=== PATIENT | female | born 1970 | race Caucasian/White ===

== ENCOUNTER 2018-12-13 02:13 | Emergency (ER) | payer BC ==
[2018-12-13 02:49] VITALS: BP 124/67; PULSE 99; TEMP 98.8; BMI 26.6
--- NOTE | 2018-12-13 02:50 | PDOC ---
Attending Attestation - Resident Resident Name: MecheSparkle - ED Attending Attestation I have performed the following: I have examined & evaluated the patient, The case was reviewed & discussed with the resident, I agree w/resident's findings & plan - HPI HPI: 12/13/18 03:39 Pt comes with nasuea and vomiting and diarrhea x 24 hrs. SHe ate a bad egg sandwich at a [employer] and she thinks that she was food poisoned. She has a hx of abdominoplasty in the past. She feels slightly improved now. Still with some minimal epig pain. states that she is hungry and she wants to go home. 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 She has no rebound and no guarding. Minimal epig. discomfort. Pt has normal HEENT Lungs clear No rashes Afebrile. Pt is A+Ox3 - Medical Decision Making 12/13/18 03:40 Pt will have labs and hydration and meds and then reeval 12/13/18 05:19 Pt feels great. She has normal labs and she has a normal EKG and normal vitals and she has no fever or pains at this time. Heart Score/ECG Review - ECG Intrepretation Rhythm: Regular Rhythm - [place]: Normal - P and [place] Delta Wave(s) Present: No WPW: No - QRS Poor R Wave Progression: No Q Wave Present: No - ST and T Early Repolarization: No Non Specific ST-T Wave changes: No
--- NOTE | 2018-12-13 02:50 | PDOC ---
History of Present Illness <Tamanna Treviño - Last Filed: 12/13/18 05:18> - General History Source: Patient - History of Present Illness Initial Comments: 12/13/18 03:12 The patient is a 48 year old female with no reported significant PMH who presents with a 1 day h/o abdominal pain. Patient states pain started suddenly around 2:30 p.m. yesterday and is cramping, constant, diffuse without any radiation. Prior to pain onset notes she consumed a ham sandwich from a [employer] which made her feel nauseous. Patient later started vomiting states she has had at least 10 episodes of NBNB emesis. Endorses 5-6 episodes of watery non- bloody diarrhea. Last PO intake was breakfast yesterday morning. The patient denies dysuria, hematuria, chest pain, shortness of breath, fever/ chills. NKDA Surgical: abdominoplasty, breast reduction Social: lifetime non-smoker PMD: Dr. Tran ([place]) <Sparkle Mcgregor - Last Filed: 12/13/18 05:36> - General Chief Complaint: Vomiting/Diarrhea Stated Complaint: DIARRHEA/VOMITING Time Seen by Provider: 12/13/18 02:49 Past History <Tamanna Treviño - Last Filed: 12/13/18 05:18> - Past Medical History COPD: No Hypercholesterolemia: Yes - Suicide/Smoking/Psychosocial Hx Smoking History: Never smoked Have you smoked in the past 12 months: No Information on smoking cessation initiated: No Hx Alcohol Use: No Drug/Substance Use Hx: No <Sparkle Mcgregor - Last Filed: 12/13/18 05:36> - Past Medical History Allergies/Adverse Reactions: Allergies Allergy/AdvReac Type Severity Reaction Status Date / Time No Known Allergies Allergy Verified 12/13/18 02:44 Home Medications: Ambulatory Orders NK [No Known Home Medication] 12/13/18 Review of Systems - Review of Systems Constitutional: No: Chills, Fever HEENTM: No: Recent change in vision, Throat Pain Respiratory: No: Cough, Shortness of Breath Cardiac (ROS): No: Chest Pain, Lightheadedness, Palpitations, Syncope ABD/GI: Yes: Diarrhea, Nausea, Vomiting, Abdominal cramping. No: Constipated : No: Burning, Dysuria <Sparkle Mcgregor - Last Filed: 12/13/18 05:36> *Physical Exam - Vital Signs Last Vital Signs Temp Pulse Resp BP Pulse Ox 98.8 F 99 H 16 124/67 97 12/13/18 02:15 12/13/18 02:15 12/13/18 02:15 12/13/18 02:15 12/13/18 03:07 <Tamanna Treviño - Last Filed: 12/13/18 05:18> - Vital Signs Last Vital Signs Temp Pulse Resp BP Pulse Ox 98.8 F 99 H 16 124/67 97 12/13/18 02:15 12/13/18 02:15 12/13/18 02:15 12/13/18 02:15 12/13/18 02:15 - Physical Exam General Appearance: Yes: Nourished, Obese HEENT: positive: Normal Voice, Hearing Grossly Normal Neck: positive: Trachea midline, Supple Respiratory/Chest: positive: Normal Breath Sounds Cardiovascular: positive: Regular Rate, S1, S2. negative: Edema, JVD, Murmur Vascular Pulses: Dorsalis-Pedis (R): 2+, Doralis-Pedis (L): 2+ Gastrointestinal/Abdominal: positive: Other (RLQ TTP w/peritoneal sign (rebound) ; (+) bowel sounds) Musculoskeletal: negative: CVA Tenderness (R), CVA Tenderness (L) Extremity: positive: Normal Capillary Refill, Normal Inspection Integumentary: positive: Normal Color, Dry, Warm Neurologic: positive: Fully Oriented, Alert <Sparkle Mcgregor - Last Filed: 12/13/18 05:36> Moderate Sedation - Procedure Monitoring Vital Signs: Procedure Monitoring Vital Signs Temperature 98.8 F 12/13/18 02:15 Pulse Rate 99 H 12/13/18 02:15 Respiratory Rate 16 12/13/18 02:15 Blood Pressure 124/67 12/13/18 02:15 O2 Sat by Pulse Oximetry (%) 97 12/13/18 03:07 <Tamanna Treviño - Last Filed: 12/13/18 05:18> - Procedure Monitoring Vital Signs: Procedure Monitoring Vital Signs Temperature 98.8 F 12/13/18 02:15 Pulse Rate 99 H 12/13/18 02:15 Respiratory Rate 16 12/13/18 02:15 Blood Pressure 124/67 12/13/18 02:15 O2 Sat by Pulse Oximetry (%) 97 12/13/18 02:15 <Sparkle Mcgregor - Last Filed: 12/13/18 05:36> Heart Score/ECG Review - ECG Impressions Comment:: 12/13/18 04:17 NSR HR 87 with normal intervals, no deviations, no AKIN/STD/TWI - non-ischemic EKG <Sparkle Mcgregor - Last Filed: 12/13/18 05:36> ED Treatment Course - LABORATORY CBC & Chemistry Diagram: 12/13/18 03:20 12/13/18 03:20 - ADDITIONAL ORDERS Additional order review: Laboratory Results 12/13/18 12/13/18 03:20 03:20 Sodium 136 Potassium 4.1 Chloride 104 Carbon Dioxide 23 Anion Gap 8 BUN 14 Creatinine 0.8 Creat Clearance w eGFR > 60 Random Glucose 112 H Lactic Acid 1.5 Calcium 8.2 L Total Bilirubin 0.4 AST 14 L ALT 16 Alkaline Phosphatase 68 Creatine Kinase 86 Troponin I < 0.02 Total Protein 7.9 Albumin 4.0 Lipase 85 12/13/18 03:20 RBC 3.90 MCV 78.0 L MCHC 33.7 RDW 16.4 H MPV 8.3 Neutrophils % 90.1 H Lymphocytes % 4.9 L Monocytes % 4.4 Eosinophils % 0.4 Basophils % 0.2 - Medications Given in the ED: ED Medications Discontinued Medications Generic Name Dose Route Start Last Admin Trade Name Freq PRN Reason Stop Dose Admin Acetaminophen 1,000 mg 12/13/18 03:43 12/13/18 04:25 Ofirmev Injection - IVPB 12/13/18 03:44 1,000 mg ONCE ONE Administration Al Hydroxide/Mg Hydroxide 30 ml 12/13/18 03:10 12/13/18 03:40 Mylanta Oral Suspension - PO 12/13/18 03:11 30 ml ONCE ONE Administration Ondansetron HCl 4 mg 12/13/18 03:10 12/13/18 03:40 Zofran Injection IVPUSH 12/13/18 03:11 4 mg ONCE ONE Administration Sodium Chloride 1,000 ml 12/13/18 03:11 12/13/18 03:40 Normal Saline - IV 12/13/18 03:12 1,000 ml ONCE ONE Administration <Tamanna Treviño - Last Filed: 12/13/18 05:18> - LABORATORY CBC & Chemistry Diagram: 12/13/18 03:20 12/13/18 03:20 <Sparkle Mcgregor - Last Filed: 12/13/18 05:36> Medical Decision Making - Medical Decision Making 12/13/18 03:16 48 year old female with acute onset of abdominal pain with associated NBNB emesis and non-bloody diarrhea. VS unremarkable. PE shows abdominal TTP with peritoneal signs. Frontal diagnosis: Acute abdomen including cholecystitis, appendicitis as well as viral gastroenteritis, PUD, pancreatitis, also consider cystitis/pyelonephritis, as well as abdominal pain as anginal equivalent, though less likely. Will obtain Basic Labs, Lactic Acid, Lipase, Troponin x1 12/13/18 04:14 No leukocytosis No lactic acidosis 12/13/18 04:18 EKG non-ischemic as documented in EKG section of EMR 12/13/18 05:10 CBC, CMP unremarkable Lipase wnL Troponin (-) x1 12/13/18 05:31 Patient reassessed @ bedside Repeat belly exam shows no abdominal TTP Will discharge home with return precautions and GI follow-up should symptoms persist. Clinical Impression: Viral gastroenteritis vs. Food poisoning I discussed the physical exam findings, ancillary test results and final diagnoses with the patient. I answered all of the patient's questions. The patient was satisfied with the care received and felt comfortable with the discharge plan and treatment plan. The patient will return to the Emergency Department with any new, persistent or worsening symptoms. <MecheSparkle ibarra - Last Filed: 12/13/18 05:36> *DC/Admit/Observation/Transfer - Discharge Dispostion Decision to Admit order: No <TreviñoTamanna - Last Filed: 12/13/18 05:18> <Federica Mcgregorica - Last Filed: 12/13/18 05:36> Diagnosis at time of Disposition: Food poisoning - Discharge Dispostion Disposition: HOME Condition at time of disposition: Improved - Referrals Referrals: ON STAFF,NOT [Primary Care Provider] - Patricia Zamora MD [Staff Physician] - - Patient Instructions Printed Discharge Instructions: DI for Food Poisoning Additional Instructions: You were evaluated today for abdominal pain. All of your labs showed no concerning findings. At this time you are safe for discharge home. Please follow-up with your primary care doctor in the next 3 days. In addition , please make an appointment with a high risk ob for further evaluation. We have provided a referral for you or you can call your insurance company for a list of doctors. Your care is not complete until you are evaluated by your primary care doctor and a high risk ob. Increase your intake of water. Advance your diet as tolerated starting with soft foods (bread, mashed potatoes) and advancing to more solid foods as tolerated. Return to the Emergency Department for any new/worsening/concerning symptoms. - Post Discharge Activity
[2018-12-13] MEDS ORDERED: ONDANSETRON 4 MG/2 ML VIAL IVPUSH ONE (03:10)
[2018-12-13] MEDS ORDERED: MAG HYDROX/AL HYDROX/SIMETH 30 ML UNIT-DOSE CUP PO ONE (03:10)
[2018-12-13] MEDS ORDERED: SODIUM CHLORIDE 0.9% 500 ML INFUS.BAG IV ONE (03:11)
[2018-12-13] MEDS ORDERED: MAG HYDROX/AL HYDROX/SIMETH 30 ML UNIT-DOSE CUP ONE (03:29)
[2018-12-13] MEDS ORDERED: ONDANSETRON 4 MG/2 ML VIAL ONE (03:29)
[2018-12-13 03:43] LABS: BASO % 0.2 % (0-2.0); EOS % 0.4 % (0-4.5); HEMATOCRIT 30.4 % (32.4-45.2); HEMOGLOBIN 10.3 GM/dL (10.7-15.3); LYMPH % 4.9 % (8-40); MCH 26.3 pg (25.7-33.7); MCHC 33.7 g/dl (32.0-36.0); MEAN PLT VOLUME 8.3 fl (7.5-11.1); MONO % 4.4 % (3.8-10.2); NEUT % 90.1 % (42.8-82.8); PLATELET COUNT 348 K/MM3 (134-434); RDW 16.4 % (11.6-15.6); WHITE BLOOD COUNT 9.2 K/mm3 (4.0-10.0)
[2018-12-13] MEDS ORDERED: ACETAMINOPHEN 1000 MG/100 ML VIAL (NON FORMULARY) IVPB ONE (03:43)
[2018-12-13] MEDS ORDERED: ACETAMINOPHEN INJECTION 100 ML IVPB ONE (04:22)
[2018-12-13 05:05] LABS: ALK PHOS 68 U/L (45-117); ANION GAP 8 MMOL/L (8-16); BILIRUBIN,TOTAL 0.4 mg/dL (0.2-1); BLOOD UREA NITROGEN 14 mg/dL (7-18); CALCIUM 8.2 mg/dL (8.5-10.1); CHLORIDE 104 mmol/L (98-107); CO2 23 mmol/L (21-32); CREATININE 0.8 mg/dL (0.55-1.3); GLUCOSE,RANDOM 112 mg/dL (74-106); LIPASE 85 U/L (73-393); POTASSIUM 4.1 mmol/L (3.5-5.1); SGOT/AST 14 U/L (15-37); SGPT/ALT 16 U/L (13-61); SODIUM 136 mmol/L (136-145); TOT PROT 7.9 g/dl (6.4-8.2)
[2018-12-13 06:15] LABS: URINE APPEARANCE CLEAR; URINE BILIRUBIN NEGATIVE (<2.0 mg/dL); URINE COLOR LTYELLOW; URINE GLUCOSE (UA) NEGATIVE (NEGATIVE); URINE KETONE NEGATIVE (NEGATIVE); URINE LEUK ESTERASE NEGATIVE (NEGATIVE); URINE NITRITE NEGATIVE (NEGATIVE); URINE PROTEIN NEGATIVE (NEGATIVE); URINE UROBILINOGEN NEGATIVE mg/dL (0.2-1.0)
[2018-12-13 06:21] LABS: EPI CELLS RARE /HPF (FEW); URINE HYALINE CAST 1 /lpf; URINE MUCUS RARE
--- NOTE | 2018-12-13 10:29 | EKG ---
Test Reason : Blood Pressure : / mmHG Vent. Rate : 087 BPM Atrial Rate : 087 BPM P-R Int : 144 ms QRS Dur : 078 ms QT Int : 388 ms P-R-T Axes : 019 -01 037 degrees QTc Int : 466 ms NORMAL SINUS RHYTHM LOW VOLTAGE QRS BORDERLINE ECG NO PREVIOUS ECGS AVAILABLE Confirmed by SKIP SANTOS MD ([id number]) on 12/13/2018 10:28:42 AM Referred By: Confirmed By:SKIP SANTOS MD
== END 2018-12-13 05:43 | disposition home or self-care (01) ==
LOC: JER 02:13
PROC: 3E033GC Introduction of Other Therapeutic Substance into Peripheral Vein, Percutaneous Approach (ICD-10-PCS; principal; 2018-12-13)
PROC: 3E033NZ Introduction of Analgesics, Hypnotics, Sedatives into Peripheral Vein, Percutaneous Approach (ICD-10-PCS; 2018-12-13)
DX: T62.8X1A Toxic effect of other specified noxious substances eaten as food, accidental (unintentional), initial encounter (principal); R11.2 Nausea with vomiting, unspecified; Y92.89 Other specified places as the place of occurrence of the external cause
CPT/HCPCS: 36415; 80053; 81003; 81015; 82550; 83605; 83690; 84484; 85025; 87086; 93005; 93010; 96374; 96375; 99284-25; J0131